=== PATIENT | male | born 1960 | race Two or more races ===

== ENCOUNTER 2024-10-22 05:46 | Inpatient (IN) | payer OTHER, MEDICAID ==
[~2024-10-22] VITALS: Ht 185.4 cm; Wt 93.8 kg
--- NOTE | 2024-10-22 06:31 | ED.PDOC ---
General HPI Comments 64 year old male brought in by EMS presents to the ED with a chief complaint of dysuria onset 1 month. Patient states he had RT knee surgery about 1 month ago, since then has been experiencing dysuria, dark color urine, incontinence. Patient had surgery on 09/25/24. Denies fever, chills, nausea, vomiting, diarrhea, abdominal pain, hematuria, shortness of breath, dizziness, blurry vision. No other symptoms or modifying factors present at this time, Chief Complaint: Urinary Time Seen by MD: 06:18 Reviewed notes: Medications, Allergies Allergies: Coded Allergies: NO KNOWN ALLERGIES (Unverified , 10/22/24) Information Source: Patient, Emergency Med Personnel Mode of Arrival: EMS Severity: Moderate Timing: Months Duration: Since onset Prehospital treatment: None Onset: Spontaneous Symptoms: Dysuria, Other (incontinence) History of: None Location: None Penile discharge: None associated signs and symptoms: Dysuria, Other (incontinence) Past Medical History PAST MEDICAL HISTORY: Denies Surgical History: Denies all surgeries Surgical History (Other): RT ankle surgery Family History Family History: Unknown Social History Smoker: Non-Smoker Alcohol: Denies ETOH Use Drugs: Denies Drug Use Lives In: Home Constitutional: denies: chills, diaphoresis, fatigue, fever, malaise, sweats, weakness, others EENTM: denies: blurred vision, double vision, ear bleeding, ear discharge, ear drainage, ear pain, ear ringing, eye pain, eye redness, hearing loss, mouth pain, mouth swelling, nasal discharge, nose bleeding, nose congestion, nose pain, photophobia, tearing, throat pain, throat swelling, voice changes, others Respiratory: denies: cough, hemoptysis, orthopnea, SOB at rest, shortness of breath, SOB with excertion, stridor, wheezing, others Cardiovascular: denies: chest pain, dizzy spells, diaphoresis, Dyspnea on exertion, edema, irregular heart beat, left arm pain, lightheadedness, palpitations, PND, syncope, others Gastrointestinal: denies: abdomen distended, abdominal pain, blood streaked bowels, constipated, diarrhea, dysphagia, difficulty swallowing, hematemesis, melena, nausea, poor appetite, poor fluid intake, rectal bleeding, rectal pain, vomiting, others Genitourinary: reports: dysuria, incontinence, others (dark urine); denies: burning, flank pain, frequency, hematuria, penile discharge, penile sore, pain, testicle pain, testicle swelling, urgency Neurological: denies: dizziness, fainting, headache, left sided numbness, left sided weakness, numbness, paresthesia, pre-existing deficit, right sided numbness, right sided weakness, seizure, speech problems, tingling, tremors, w eakness, others Musculoskeletal: denies: back pain, gout, joint pain, joint swelling, muscle pain, muscle stiffness, neck pain, others Integumetry: denies: bruises, change in color, change in hair/nails, dryness, laceration, lesions, lumps, rash, wounds, others Allergic/Immunocompromised: denies: Difficulty Healing, Frequent Infections, Hives, Itching, others Hematologic/Lymphatic: denies: anemia, blood clots, easy bleeding, easy bruising, swollen glands, others Endocrine: denies: excessive hunger, excessive sweating, excessive thirst, excessive urination, flushing, intolerance to cold, intolerance to heat, unexplained weight gain, unexplained weight loss, others Psychiatric: denies: anxiety, bipolar disorder, depression, hopeless, panic disorder, schizophrenia, sleepless, suicidal, others All Other Systems: Reviewed and Negative Physical Exam General Appearance: No Apparent Distress, Normal HEENT: Normal ENT Inspection, Pharynx Normal, TMs Normal Neck: Full Range of Motion, Non-Tender, Normal, Normal Inspection Respiratory: Chest Non-Tender, Lungs Clear, No Accessory Muscle Use, No Respiratory Distress, Normal Breath Sounds Cardiovascular: No Edema, No JVD, No Murmur, No Gallop, Normal Peripheral Pulses, Regular Rate/Rhythm Breast Exam: Deferred Gastrointestinal: No Organomegaly, Non Tender, No Pulsatile Mass, Normal Bowel Sounds, Soft Genitalia: Deferred Pelvic: Deferred Rectal: Deferred Extremities: No calf tenderness, Normal capillary refill, Normal inspection, Normal range of motion, Non-tender, No pedal edema Musculoskeletal : Apperance: Normal Neurologic: Alert, principal programmer II-XII nml as Tested, No Motor Deficits, Normal Affect, Normal Mood, No Sensory Deficits Cerebellar Function: Normal Reflexes: Normal Skin: Dry, Normal Color, Warm Lymphatic: No Adenopathy Was a procedure done? Was a procedure done?: No Differential Diagnosis Kidney stone (Female): N/A Kidney stone (Male): Pyelonephritis, Renal failure, Urinary obstruction, Urolithiasis, Renal infarction, Urinary tract infection Penile/Scrotal: Epidiymitis, Foreign Body, Prostatitis, Urolithiasis Urinary Problem (Male): Bladder Outlet, Bladder Obstruction, Prostatitis, Plelonephritis, Urinary Retention Urinary Problem (Female): N/A X-Ray, Labs, Meds, VS Vital Signs Date Time Temp Pulse Resp B/P (MAP) Pulse Ox O2 Delivery O2 Flow Rate FiO2 10/22/24 08:12 90 18 98 Room Air* 0 21 10/22/24 07:57 90 17 93 Room Air 10/22/24 07:57 97.9 90 17 136/95 (109) 93 97.9 10/22/24 05:51 98.2 90 16 132/89 (103) 95 Lab Test 10/22/24 07:47 10/22/24 06:29 Range/Units Urine Color Yellow Yellow Urine Clarity Turbid H Clear Urine pH 6.0 5.0-9.0 Urine Specific [place] 1.029 1.001-1.035 Urine Protein 3+ H Negative Urine Ketones Negative Negative Urine Blood 2+ H Negative /uL Urine Nitrite Negative Negative Urine Bilirubin Negative Negative Urine Urobilinogen Normal Negative mg/dL Urine Leukocyte Esterase Negative Negative /uL Urine RBC 40 0 - 3 /hpf Urine Microscopic WBC 9 H 0-3 /HPF Urine Squamous Epithelial Cells Few <5 /hpf Urine Bacteria Few H None Seen /hpf Urine Mucus Few None Seen Urine Yeast (Budding) Occasional None Seen /hpf Urine Glucose Trace Normal mg/dL White Blood Count 12.1 H 4.4-10.8 10^3/uL Red Blood Count 3.82 L 4.5-5.90 10^6/uL Hemoglobin 12.2 L 13.5-17.5 g/dL Hematocrit 35.3 L 41.0-53.0 % Mean Corpuscular Volume 92.5 80.0-100.0 fL Mean Corpuscular Hemoglobin 31.8 28.0-32.0 pg Mean Corpuscular Hemoglobin Concent 34.4 32.0-36.0 g/dL Red Cell Distribution Width 14.9 H 11.8-14.3 % Platelet Count 276 140-450 10^3/uL Mean Platelet Volume 9.4 6.9-10.8 fL Neutrophils (%) (Auto) 75.2 37.0-80.0 % Lymphocytes (%) (Auto) 17.0 10.0-50.0 % Monocytes (%) (Auto) 5.3 0.0-12.0 % Eosinophils (%) (Auto) 2.3 0.0-7.0 % Basophils (%) (Auto) 0.2 0.0-2.0 % Neutrophils # (Auto) 9.1 H 1.6-8.6 10 ^3/uL Lymphocytes # (Auto) 2.1 0.4-5.4 10 ^3/uL Monocytes # (Auto) 0.6 0-1.3 10 ^3/uL Eosinophils # (Auto) 0.3 0-0.8 10 ^3/uL Basophils # (Auto) 0 0-0.2 10 ^3/uL Nucleated Red Blood Cells 0.0 % Sodium Level 139 136-145 mmol/L Potassium Level 3.2 L 3.5-5.1 mmol/L Chloride Level 100 98-107 mmol/L Carbon Dioxide Level 27 20-31 mmol/L Anion Gap 12 5-15 Blood Urea Nitrogen 30 H 9-23 mg/dL Creatinine 1.56 H 0.700-1.30 mg/dL Glomerular Filtration Rate Calc 50 >90 mL/min BUN/Creatinine Ratio 19.2 10.0-20.0 Serum Glucose 152 H 74-106 mg/dL Calcium Level 10.4 8.7-10.4 mg/dL Time of 1ST Reevaluation: 06:48 Reevaluation 1ST: Unchanged Patient Education/Counseling: Diagnosis, Treatment, Prognosis Family Education/Counseling: No Family Present Additional Information The following tests were ordered, and results were reviewed by me: BMP, CBC, UA Additional Information was gathered from interviewing the following independent historians: EMS I discussed treatment and results with medical personnel and: patient Departure 1 Departure Time of Disposition: 10:56 (Patient with complicated urinary tract infection causing urinary incontinence. We will admit patient for further workup and expert consultation) Impression: Primary Impression: Complicated UTI (urinary tract infection) Additional Impressions: Urinary incontinence Qualified Codes: R32 - Unspecified urinary incontinence Suprapubic pain Generalized weakness Disposition: 09 ADMITTED INPATIENT Admit to: Med Surg Condition: Serious Critical Care Note Critical Care Time?: No Stability Stability form required: No I personally scribed for CHAYO MIRANDA MD ([email or web address]) on 10/22/24 at 06:31. Electr onically submitted by Lesley Barahona ([email or web address]). I personally scribed for CHAYO MIRANDA MD ([email or web address]) on 10/22/24 at 06:50. Electronically submitted by Lesley Barahona ([email or web address]). CHAYO MIRANDA MD Oct 22, 2024 06:31
[2024-10-22 06:57] LABS: Anion Gap 12 (5-15); Carbon Dioxide 27 mmol/L (20-31); Chloride 100 mmol/L (98-107); Sodium 139 mmol/L (136-145)
[2024-10-22 06:59] LABS: Calcium 10.4 mg/dL (8.7-10.4); Potassium 3.2 mmol/L (3.5-5.1)
[2024-10-22 07:03] LABS: BUN/Creatinine Ratio 19.2 (10.0-20.0)
[2024-10-22 07:05] LABS: Basophils # (auto) 0 10 ^3/uL (0-0.2); Basophils % (auto) 0.2 % (0.0-2.0); Eosinophils # (auto) 0.3 10 ^3/uL (0-0.8); Eosinophils % (auto) 2.3 % (0.0-7.0); Hematocrit 35.3 % (41.0-53.0); Hemoglobin 12.2 g/dL (13.5-17.5); Lymphocytes # (auto) 2.1 10 ^3/uL (0.4-5.4); Mean Corpuscular Hemoglobin 31.8 pg (28.0-32.0); Mean Corpuscular Hgb Conc. 34.4 g/dL (32.0-36.0); Mean Corpuscular Volume 92.5 fL (80.0-100.0); Monocytes # (auto) 0.6 10 ^3/uL (0-1.3); Monocytes % (auto) 5.3 % (0.0-12.0); Neutrophils # (auto) 9.1 10 ^3/uL (1.6-8.6); Neutrophils % (auto) 75.2 % (37.0-80.0); Platelet Count (auto) 276 10^3/uL (140-450); Red Blood Cells 3.82 10^6/uL (4.5-5.90); Red Cell Distribution Width 14.9 % (11.8-14.3); White Blood Cell 12.1 10^3/uL (4.4-10.8)
[2024-10-22 07:11] LABS: Blood Urea Nitrogen 30 mg/dL (9-23); Glucose 152 mg/dL (74-106)
[2024-10-22 08:12] VITALS: PULSE 90; RESP 18; O2SAT 98
[2024-10-22 08:49] LABS: Urine Bacteria FEW /hpf (None Seen); Urine Blood 2+ /uL (Negative); Urine Budding Yeast OCCASIONAL /hpf (None Seen); Urine Clarity Turbid (Clear); Urine Color Yellow (Yellow); Urine Mucus FEW (None Seen); Urine Protein, UAD 3+ (Negative); Urine Specific Gravity 1.029 (1.001-1.035); Urine Squamous Epithelial Cell FEW /hpf (<5); Urine Urobilinogen Normal (Negative); Urine WBC 9 /HPF (0-3)
--- NOTE | 2024-10-22 10:49 | DVH ---
CT ABDOMEN AND PELVIS WITHOUT CONTRAST CLINICAL HISTORY: abdominal pain, hematuria, urinary issues TECHNIQUE: Multiple contiguous axial images of the abdomen and pelvis without intravenous contrast. T he images were reformatted degenerate coronal and sagittal reconstructions. All CT scans at this medical facility are performed using dose modulation techniques as appropriate t o a performed exam including the following:Automated exposure control was utilized; adjustment of the MA and/or KV according to patient size; and use of iterative reconstruction technique. Radiation Dose Information: CT Dose: CTDI volume is 16 mGy. Dose-length product is 939 mGy*cm Comparison: None FINDINGS: Evaluation of the abdomen and pelvis is limited without intravenous contrast. CT images are also degr aded by motion artifact. There is no evidence of nephrolithiasis or hydronephrosis. There is a 2.1 cm right midpole renal cys t. The liver, gallbladder, pancreas, adrenal glands, and spleen appear within normal limits. There is no gross evidence of abdominal lymphadenopathy. There is no free fluid or free air. The stomach grossly appears unremarkable. The small and large bowel loops demonstrate normal caliber . There are scattered diverticula in the distal colon without evidence of acute diverticulitis. A no rmal appearing appendix is seen in the right lower quadrant abdomen. The abdominal aorta and IVC appear within normal limits. Poorly filled bladder demonstrates circumferential wall thickening. There mild fat stranding surroun ding the bladder. There is no evidence of a bladder calculus. The prostate gland is not appear signif icantly enlarged. There is no gross evidence of a pelvic mass. There is no free fluid collection. Lung bases are clear. There is no acute osseous abnormality. IMPRESSION: 1. Poorly filled bladder demonstrates circumferential wall thickening and surrounding fat stranding. The findings are suggestive of cystitis. Clinical and laboratory correlation is recommended. 2. There is no evidence of nephrolithiasis or hydronephrosis. 3. Distal colon diverticulosis. HS:Y
[2024-10-22] MEDS: CEFEPIME 2GM/50ML NS 50 ML IV ONE (11:10)
[2024-10-22] MEDS ORDERED: ACETAMINOPHEN 325 MG TAB PO PRN (13:30)
[2024-10-22] MEDS ORDERED: DOCUSATE SOD 100 MG CAP PO PRN (13:30)
[2024-10-22] MEDS ORDERED: ONDANSETRON HCL 4 MG/2 ML VIAL IV PRN (13:30)
--- NOTE | 2024-10-22 13:47 | DVHHP2 ---
History of Present Illness Reason for Visit: Difficulty urinating History of Present Illness César Daley is a 64-year-old male with past medical history of hypertension and seizures, who came in for difficulty urinating. Patient states he had an ankle surgery on 09/25/2024 and has been difficulty urinating since his discharge on 09/28/2024. Patient is a poor historian, he states he has seizures and can not remember things, he does not know the medications he takes, he can not tell me what medications he takes, and he lives [facility]. Cardiovascular: HTN DATA ANALYTICS ARCHITECT: Seizure Past Surgical History: Other (right ankle) Smoke: No ALCOHOL: none Drugs: None Lives: Other ([facility] Domestic Violence: Neg Review of Systems Constitutional: No: Fever, Chills, Sweats, Weakness, Malaise, Other Eyes: No: Pain, Vision change, Conjunctivae inflammation, Eyelid inflammation, Other, Redness ENT: No: Ear pain, Ear discharge, Nose pain, Nose discharge, Nose congestion, Mouth pain, Mouth swelling, Throat pain, Throat swelling, Other Respiratory: No: Cough, Dry, Shortness of breath, SOB with excertion, Wheezing, Hemoptysis, Pleuritic Pain, Sputum, Wheezing, Other Cardiovascular: No: Chest Pain, Palpitations, Orthopnea, Paroxysmal Noc. Dyspnea, Edema, Lt Headedness, Other Gastrointestinal: Abdominal Pain (pelvic pain); No: Nausea, Vomiting, Diarrhea, Constipation, Melena, Hematochezia, Other Genitourinary: Dysuria, Frequency; No Incontinence, No Hematuria, No Retention, No Other Musculoskeletal: No: other, neck pain, shoulder pain, arm pain, back pain, hand pain, leg pain, foot pain Skin: No: Rash, Lesions, Jaundice, Bruising, Other Neurological: No: Weakness, Numbness, Incoordination, Change in speech, Confusion, Seizures, Other Allergies: Coded Allergies: NO KNOWN ALLERGIES (Unverified , 10/22/24) Exam Vital Signs Vital Signs Date Time Temp Pulse Resp B/P (MAP) Pulse Ox O2 Delivery O2 Flow Rate FiO2 10/22/24 11:10 97.4 91 16 150/90 (110) 94 97.4 10/22/24 08:12 Room Air* 0 21 General Appearance: Alert, Oriented X3, Cooperative, mild distress HEENT: Atraumatic, PERRLA, EOMI Respiratory: Clear to auscultation, Normal air movement Cardiovascular: Regular rate, Normal S1, Normal S2, No murmurs Abdominal: Normal bowel sounds, Soft, Other (Pelvic pain, dysuria) Extremities: No clubbing, No cyanosis, No edema, Normal pulses Skin: No rashes, No breakdown, No significant lesion Neuro: Normal gait, Normal speech, Strength at 5/5 X4 ext, Normal tone, Other (forgetful, Poor historian) Psych/Mental Status: Mood NL Labs/Xrays Labs Test 10/22/24 07:47 10/22/24 06:29 Range/Units Urine Color Yellow Yellow Urine Clarity Turbid H Clear Urine pH 6.0 5.0-9.0 Urine Specific [place] 1.029 1.001-1.035 Urine Protein 3+ H Negative Urine Ketones Negative Negative Urine Blood 2+ H Negative /uL Urine Nitrite Negative Negative Urine Bilirubin Negative Negative Urine Urobilinogen Normal Negative mg/dL Urine Leukocyte Esterase Negative Negative /uL Urine RBC 40 0 - 3 /hpf Urine Microscopic WBC 9 H 0-3 /HPF Urine Squamous Epithelial Cells Few <5 /hpf Urine Bacteria Few H None Seen /hpf Urine Mucus Few None Seen Urine Yeast (Budding) Occasional None Seen /hpf Urine Glucose Trace Normal mg/dL White Blood Count 12.1 H 4.4-10.8 10^3/uL Red Blood Count 3.82 L 4.5-5.90 10^6/uL Hemoglobin 12.2 L 13.5-17.5 g/dL Hematocrit 35.3 L 41.0-53.0 % Mean Corpuscular Volume 92.5 80.0-100.0 fL Mean Corpuscular Hemoglobin 31.8 28.0-32.0 pg Mean Corpuscular Hemoglobin Concent 34.4 32.0-36.0 g/dL Red Cell Distribution Width 14.9 H 11.8-14.3 % Platelet Count 276 140-450 10^3/uL Mean Platelet Volume 9.4 6.9-10.8 fL Neutrophils (%) (Auto) 75.2 37.0-80.0 % Lymphocytes (%) (Auto) 17.0 10.0-50.0 % Monocytes (%) (Auto) 5.3 0.0-12.0 % Eosinophils (%) (Auto) 2.3 0.0-7.0 % Basophils (%) (Auto) 0.2 0.0-2.0 % Neutrophils # (Auto) 9.1 H 1.6-8.6 10 ^3/uL Lymphocytes # (Auto) 2.1 0.4-5.4 10 ^3/uL Monocytes # (Auto) 0.6 0-1.3 10 ^3/uL Eosinophils # (Auto) 0.3 0-0.8 10 ^3/uL Basophils # (Auto) 0 0-0.2 10 ^3/uL Nucleated Red Blood Cells 0.0 % Sodium Level 139 136-145 mmol/L Potassium Level 3.2 L 3.5-5.1 mmol/L Chloride Level 100 98-107 mmol/L Carbon Dioxide Level 27 20-31 mmol/L Anion Gap 12 5-15 Blood Urea Nitrogen 30 H 9-23 mg/dL Creatinine 1.56 H 0.700-1.30 mg/dL Glomerular Filtration Rate Calc 50 >90 mL/min BUN/Creatinine Ratio 19.2 10.0-20.0 Serum Glucose 152 H 74-106 mg/dL Calcium Level 10.4 8.7-10.4 mg/dL CT ABDOMEN AND PELVIS WITHOUT CONTRAST FINDINGS: Evaluation of the abdomen and pelvis is limited without intravenous contrast. CT images are also degraded by motion artifact. There is no evidence of nephrolithiasis or hydronephrosis. There is a 2.1 cm right midpole renal cyst. The liver, gallbladder, pancreas, adrenal glands, and spleen appear within normal limits. There is no gross evidence of abdominal lymphadenopathy. There is no free fluid or free air. The stomach grossly appears unremarkable. The small and large bowel loops demonstrate normal caliber. There are scattered diverticula in the distal colon without evidence of acute diverticulitis. A normal appearing appendix is seen in the right lower quadrant abdomen. The abdominal aorta and IVC appear within normal limits. Poorly filled bladder demonstrates circumferential wall thickening. There mild fat stranding surrounding the bladder. There is no evidence of a bladder calculus. The prostate gland is not appear significantly enlarged. There is no gross evidence of a pelvic mass. There is no free fluid collection. Lung bases are clear. There is no acute osseous abnormality. IMPRESSION: 1. Poorly filled bladder demonstrates circumferential wall thickening and surrounding fat stranding. The findings are suggestive of cystitis. Clinical and laboratory correlation is recommended. 2. There is no evidence of nephrolithiasis or hydronephrosis. 3. Distal colon diverticulosis. Assessment/Plan Assessment/Plan Assessment: Complicated UTI, Cystitis, Seizures, Hypertension, Plan: Admit to Med-Surg, IV antibiotics, IV hydration, Urine culture, Patient is going to provide a list of home medications to be reconciled, Antihypertensives started, Will start Keppra, seizure medication until patient is able to provide a proper list. Plan discussed with: Patient My Orders Orders - KATY LARA Procedure Category Date Status Time Admit ADMIT 10/22/24 Verified 13:21 Code Status CODE 10/22/24 Verified 13:21 0.9% Ns 1000 Ml PHA 10/22/24 Verified 13:30 Hydrocodone-Acet PHA 10/22/24 Verified 5/325mg Tab (Rozel 13:30 Ondansetron Hcl PHA 10/22/24 Verified (Zofran) 13:30 Docusate Sodium PHA 10/22/24 Verified Capsule (Colace 13:30 Complete Blood Count LAB 10/23/24 Verified 04:00 Comprehensive LAB 10/23/24 Verified Metabolic Panel 04:00 Condition: Serious LUIS ALBERTO 10/22/24 Verified 13:21 Acetaminophen Tablet PHA 10/22/24 Verified (Tylenol Tablet) 13:30 Urine Bacterial ISAAC 10/22/24 Verified Culture 13:21 NS PHA 10/22/24 Verified 13:30 Ceftriaxone Ivpb PHA 10/23/24 Verified Rocephin 09:00 Seizure Precautions ED NURSING 10/22/24 Verified Date of Service: Oct 22, 2024 Billing Provider: KATY LARA Common Visit Codes: [id number] INP/OBS CARE (MOD) KATY LARA Oct 22, 2024 13:47
[2024-10-22 21:11] VITALS: BP 115/75; PULSE 100; RESP 20; TEMP 97.9; O2SAT 91
[2024-10-22 22:42] VITALS: PULSE 100; RESP 20; O2SAT 91
[2024-10-22] MEDS: levETIRAcetam 500 MG TAB PO SCH (22:48)
[2024-10-22] MEDS: amLODIPine BESYLATE 5 MG TAB PO ONE (22:48)
[2024-10-22] MEDS: SODIUM CHLORIDE 0.9% 1,000 ML IV SCH (23:00)
[2024-10-23] VITALS (7 sets, daily range): BP systolic 114–142; BP diastolic 73–92; PULSE 76–105; RESP 18–20; TEMP 97.6–99.5; O2SAT 91–95
[2024-10-23 06:33] LABS: Basophils # (auto) 0 10 ^3/uL (0-0.2); Basophils % (auto) 0.3 % (0.0-2.0); Eosinophils # (auto) 0.3 10 ^3/uL (0-0.8); Eosinophils % (auto) 2.8 % (0.0-7.0); Hematocrit 34.7 % (41.0-53.0); Hemoglobin 11.8 g/dL (13.5-17.5); Lymphocytes # (auto) 2.1 10 ^3/uL (0.4-5.4); Lymphocytes % (auto) 20.7 % (10.0-50.0); Mean Corpuscular Hemoglobin 31.4 pg (28.0-32.0); Mean Corpuscular Volume 92.3 fL (80.0-100.0); Monocytes # (auto) 0.7 10 ^3/uL (0-1.3); Monocytes % (auto) 6.9 % (0.0-12.0); Neutrophils # (auto) 7.1 10 ^3/uL (1.6-8.6); Neutrophils % (auto) 69.3 % (37.0-80.0); Platelet Count (auto) 287 10^3/uL (140-450); Red Blood Cells 3.75 10^6/uL (4.5-5.90); Red Cell Distribution Width 14.7 % (11.8-14.3); White Blood Cell 10.3 10^3/uL (4.4-10.8)
[2024-10-23 06:50] LABS: Alanine Aminotransferase 26 U/L (7-40); Albumin 3.9 g/dL (3.2-4.8); Alkaline Phosphatase 65 U/L (46-116); Anion Gap 10 (5-15); Aspartate Aminotransferase 26 U/L (13-40); BUN/Creatinine Ratio 21.9 (10.0-20.0); Carbon Dioxide 28 mmol/L (20-31); Chloride 101 mmol/L (98-107); Sodium 139 mmol/L (136-145)
[2024-10-23 06:51] LABS: Bilirubin, Total 0.3 mg/dL (0.2-1.0)
[2024-10-23 06:53] LABS: Blood Urea Nitrogen 37 mg/dL (9-23); Glucose 148 mg/dL (74-106); Potassium 3.4 mmol/L (3.5-5.1)
[2024-10-23] MEDS: cefTRIAXone 1GM/50ML D5W 50 ML IV SCH (09:12)
[2024-10-23] MEDS: amLODIPine BESYLATE 5 MG TAB PO SCH (09:13)
[2024-10-23] MEDS: SODIUM CHLORIDE 0.9% 1,000 ML IV ONE (12:58)
--- NOTE | 2024-10-23 13:08 | DVHPN2 ---
Reviewed: Care Plan, H&P, Labs, Medications, Previous Orders, Radiology Changes from previous H/P or p: No Changes Eyes: No Pain, No Vision change, No Conjunctivae inflammation, No Eyelid inflammation, No Other, No Redness ENT: No Ear pain, No Ear discharge, No Nose pain, No Nose discharge, No Nose congestion, No Mouth pain, No Mouth swelling, No Throat pain, No Throat swelling, No Other Cardiovascular: No Chest Pain, No Palpitations, No Orthopnea, No Paroxysmal Noc. Dyspnea, No Edema, No Lt Headedness, No Other Respiratory: No Cough, No Dry, No Shortness of breath, No SOB with excertion, No Wheezing, No Hemoptysis, No Pleuritic Pain, No Sputum, No Other Gastrointestinal: No Nausea, No Vomiting; Abdominal Pain (pelvic pain); No Diarrhea, No Constipation, No Melena, No Hematochezia, No Other Genitourinary: Dysuria, Frequency; No Incontinence, No Hematuria, No Retention, No Other Musculoskeletal: No other, No neck pain, No shoulder pain, No arm pain, No back pain, No hand pain, No leg pain, No foot pain Skin: No Rash, No Lesions, No Jaundice, No Bruising, No Other Objective Vitals Vital Signs Date Time Temp Pulse Resp B/P (MAP) Pulse Ox O2 Delivery O2 Flow Rate FiO2 10/23/24 12:41 98.3 76 18 139/88 (105) 95 98.3 10/23/24 08:00 Room Air* 0 21 Intake/Output Intake and Output 10/23/24 07:00 Intake Total 1010 ml Balance 1010 ml Intake Oral 400 ml IV Total 610 ml # Voids 3 Medications Current Medications Medications Dose Ordered Sig/Aren Route Start Time Stop Time Status Last Admin Dose Admin Sodium Chloride 1,000 ml @ 75 mls/hr [id number] IV 10/22/24 13:30 10/22/24 23:00 75 MLS/HR Acetaminophen/ Hydrocodone Bitart 1 tab Q4HP PRN PO 10/22/24 13:30 Ondansetron HCl 4 mg Q4HP PRN IV 10/22/24 13:30 Docusate Sodium 100 mg BIDPRN PRN PO 10/22/24 13:30 Acetaminophen 650 mg Q6HP PRN PO 10/22/24 13:30 Ceftriaxone Sodium 50 ml @ 100 mls/hr DAILY@09 IV 10/23/24 09:00 10/23/24 09:12 100 MLS/HR Levetiracetam 500 mg BID PO 10/22/24 22:00 10/23/24 09:12 500 MG Amlodipine Besylate 10 mg DAILY PO 10/23/24 10:00 10/23/24 09:13 10 MG Laboratory Results Laboratory Tests 10/23/24 05:59 Chemistry Test 10/23/24 05:59 Albumin 3.9 g/dL (3.2-4.8) Calcium Level 10.0 mg/dL (8.7-10.4) Total Protein 7.0 g/dL (5.7-8.2) LFT Test 10/23/24 05:59 Alanine Aminotransferase (ALT) 26 U/L (7-40) Alkaline Phosphatase 65 U/L (46-116) Aspartate Amino Transferase (AST) 26 U/L (13-40) Total Bilirubin 0.3 mg/dL (0.2-1.0) Urinalysis Test 10/22/24 07:47 Urine Color Yellow (Yellow) Urine Clarity Turbid (Clear) H Urine pH 6.0 (5.0-9.0) Urine Specific [place] 1.029 (1.001-1.035) Urine Protein 3+ (Negative) H Urine Ketones Negative (Negative) Urine Blood 2+ /uL (Negative) H Urine Nitrite Negative (Negative) Urine Bilirubin Negative (Negative) Urine Urobilinogen Normal mg/dL (Negative) Urine Leukocyte Esterase Negative /uL (Negative) Urine RBC 40 /hpf (0 - 3) Urine Microscopic WBC 9 /HPF (0-3) H Urine Squamous Epithelial Cells Few /hpf (<5) Urine Bacteria Few /hpf (None Seen) H Urine Mucus Few (None Seen) Urine Yeast (Budding) Occasional /hpf (None Urine Glucose Trace mg/dL (Normal) Microbiology Microbiology Date/Time Source Procedure Growth Status 10/22/24 07:47 Voided Urine Urine Culture - Preliminary Resulted Labs and/or images reviewed: Labs reviewed by me, Image(s) reviewed by me Assessment/Plan Assessment/Plan Sepsis secondary to urinary tract infection: Urine cultures Rocephin Seizures: Keppra Hypertension: Amlodipine Acute urinary retention: CT abdomen pelvis without contrast negative, we will order PSA History of right ankle fracture surgery at [place] 09/25/2024, per wound care nurse lot of smell, we will order MRI right foot and podiatric consult for Dr. Marshall Plan discussed with: Patient My Orders Orders - CASSIE MCKEON MD Procedure Category Date Status Time Psa Total+% Free LAB 10/23/24 Transmitted 13:03 Date of Service: Oct 23, 2024 Billing Provider: CASSIE MCKEON MD Common Visit Codes: [id number] INP/OBS CARE(HIGH) CASSIE MCKEON MD Oct 23, 2024 13:08
[2024-10-24] VITALS (7 sets, daily range): BP systolic 148–158; BP diastolic 74–97; PULSE 77–92; RESP 18–20; TEMP 97.8–98.5; O2SAT 94–96
--- NOTE | 2024-10-24 08:53 | DVHPN2 ---
Reviewed: Care Plan, H&P, Labs, Medications, Previous Orders, Radiology Changes from previous H/P or p: No Changes Eyes: No Pain, No Vision change, No Conjunctivae inflammation, No Eyelid inflammation, No Other, No Redness ENT: No Ear pain, No Ear discharge, No Nose pain, No Nose discharge, No Nose congestion, No Mouth pain, No Mouth swelling, No Throat pain, No Throat swelling, No Other Cardiovascular: No Chest Pain, No Palpitations, No Orthopnea, No Paroxysmal Noc. Dyspnea, No Edema, No Lt Headedness, No Other Respiratory: No Cough, No Dry, No Shortness of breath, No SOB with excertion, No Wheezing, No Hemoptysis, No Pleuritic Pain, No Sputum, No Other Gastrointestinal: No Nausea, No Vomiting; Abdominal Pain (pelvic pain); No Diarrhea, No Constipation, No Melena, No Hematochezia, No Other Genitourinary: Dysuria, Frequency; No Incontinence, No Hematuria, No Retention, No Other Musculoskeletal: No other, No neck pain, No shoulder pain, No arm pain, No back pain, No hand pain, No leg pain, No foot pain Skin: No Rash, No Lesions, No Jaundice, No Bruising, No Other Objective Vitals Vital Signs Date Time Temp Pulse Resp B/P (MAP) Pulse Ox O2 Delivery O2 Flow Rate FiO2 10/24/24 08:17 152/90 10/24/24 08:04 Room Air* 0 21 10/24/24 05:00 98.1 79 20 96 98.1 Intake/Output Intake and Output 10/24/24 07:00 Intake Total 900 ml Output Total 400 ml Balance 500 ml Intake Oral 850 ml IV Total 50 ml Output Urine Total 400 ml # Voids 5 Medications Current Medications Medications Dose Ordered Sig/Aren Route Start Time Stop Time Status Last Admin Dose Admin Sodium Chloride 1,000 ml @ 75 mls/hr [id number] IV 10/22/24 13:30 10/24/24 05:30 75 MLS/HR Acetaminophen/ Hydrocodone Bitart 1 tab Q4HP PRN PO 10/22/24 13:30 Ondansetron HCl 4 mg Q4HP PRN IV 10/22/24 13:30 Docusate Sodium 100 mg BIDPRN PRN PO 10/22/24 13:30 Acetaminophen 650 mg Q6HP PRN PO 10/22/24 13:30 Ceftriaxone Sodium 50 ml @ 100 mls/hr DAILY@09 IV 10/23/24 09:00 10/24/24 08:01 100 MLS/HR Levetiracetam 500 mg BID PO 10/22/24 22:00 10/24/24 08:18 500 MG Amlodipine Besylate 10 mg DAILY PO 10/23/24 10:00 10/24/24 08:17 10 MG Laboratory Results Laboratory Tests 10/23/24 05:59 Urinalysis Test 10/22/24 07:47 Urine Color Yellow (Yellow) Urine Clarity Turbid (Clear) H Urine pH 6.0 (5.0-9.0) Urine Specific [place] 1.029 (1.001-1.035) Urine Protein 3+ (Negative) H Urine Ketones Negative (Negative) Urine Blood 2+ /uL (Negative) H Urine Nitrite Negative (Negative) Urine Bilirubin Negative (Negative) Urine Urobilinogen Normal mg/dL (Negative) Urine Leukocyte Esterase Negative /uL (Negative) Urine RBC 40 /hpf (0 - 3) Urine Microscopic WBC 9 /HPF (0-3) H Urine Squamous Epithelial Cells Few /hpf (<5) Urine Bacteria Few /hpf (None Seen) H Urine Mucus Few (None Seen) Urine Yeast (Budding) Occasional /hpf (None Urine Glucose Trace mg/dL (Normal) Microbiology Microbiology Date/Time Source Procedure Growth Status 10/22/24 07:47 Voided Urine Urine Culture - Preliminary Resulted Labs and/or images reviewed: Labs reviewed by me, Image(s) reviewed by me Assessment/Plan Assessment/Plan Sepsis secondary to urinary tract infection: Urine cultures pending, continue Rocephin Seizures: Keppra Hypertension: Amlodipine Acute urinary retention: CT abdomen pelvis without contrast negative, PSA pending History of right ankle fracture surgery at [place] 09/25/2024, patient did not go back for postop check, possible infection per wound care nurse , MRI ankle could not be done as there is too much metal in the ankle per explosive ordnance disposal technician Rm, consult for ship's pilot Dr. Lara Plan discussed with: Patient My Orders Orders - CASSIE MCKEON MD Procedure Category Date Status Time Psa Total+% Free LAB 10/23/24 In Process 13:03 *Podiatry Consult CONS 10/23/24 Transmitted Joanna([facility]) 13:08 * Dietary Consult CONS 10/23/24 Transmitted 12:27 Cleanse Wound With LUIS ALBERTO 10/23/24 In Process Wound Clean 12:27 Date of Service: Oct 24, 2024 Billing Provider: CASSIE MCKEON MD Common Visit Codes: [id number] INP/OBS CARE(HIGH) CASSIE MCKEON MD Oct 24, 2024 08:53
[2024-10-24] MEDS: POTASSIUM CHL 20 Meq TABLET PO ONE (10:36)
[2024-10-24 11:08] LABS: PSA Free 0.1 ng/mL
--- NOTE | 2024-10-24 12:58 | DVHINCON2 ---
Date Seen: Oct 24, 2024 Reason for Consultation Right ankle wound History of Present Illness César Daley is a 64-year-old male with past medical history of hypertension and seizures, who came in for difficulty urinating. Patient states he had an ankle surgery on 09/25/2024 and has been difficulty urinating since his discharge on 09/28/2024. Patient is a poor historian, he states he has seizures and can not remember things, he does not know the medications he takes, he can not tell me what medications he takes, and he lives in a [facility]. Past Medical History See H&P Past Surgical History See H&P Family History: Patient reports no known family medical history. Allergies: Coded Allergies: NO KNOWN ALLERGIES (Unverified , 10/22/24) Home Meds Unable to Obtain Active Prescriptions or Reported Meds Vital Signs Vital Signs Date Time Temp Pulse Resp B/P (MAP) Pulse Ox O2 Delivery O2 Flow Rate FiO2 10/24/24 08:53 98.2 77 18 152/92 (112) 94 98.2 10/24/24 08:04 Room Air* 0 21 Physical Exam DERMATOLOGIC EXAM: - Skin is dry and cool to the touch dry bilaterally. - Nails 1-5 of the bilateral foot are thickened, discolored, dystrophic, and tender to palpate with subungual debris - Hair loss noted to bilateral feet Wound #1: Location: Right lateral fibula Measurements: Length 1.5 cm x width 1.5 cm x depth 0.5 cm. Wound margins: Hyperkeratotic. Wound base: Full thickness. General Appearance: Healthy and bleeding. Probes to Bone: No Purulent drainage: No Serous drainage: No Erythema: Absent VASCULAR EXAM: - DP and PT pulses are palpable bilaterally. - BALER is brisk to all digits. - Feet are cool to touch compared to lower legs bilaterally. NEUROLOGIC EXAM: - Normal light touch sensation to the superficial peroneal, deep peroneal, sural, saphenous, and tibial nerve branches. - Protective sensation is diminished as tested with a 5.07 10g [place]-Rakesh bilaterally. MUSCULOSKELETAL EXAM: - No gross deformities - Muscle strength is 5/5 and active motion is pain-free and symmetrical bilaterally - No pain or crepitation with passive range of motion bilaterally to all major pedal joints Labs/Diagnostic Data Labs Test 10/23/24 05:59 10/22/24 07:47 Range/Units White Blood Count 10.3 4.4-10.8 10^3/uL Red Blood Count 3.75 L 4.5-5.90 10^6/uL Hemoglobin 11.8 L 13.5-17.5 g/dL Hematocrit 34.7 L 41.0-53.0 % Mean Corpuscular Volume 92.3 80.0-100.0 fL Mean Corpuscular Hemoglobin 31.4 28.0-32.0 pg Mean Corpuscular Hemoglobin Concent 34.0 32.0-36.0 g/dL Red Cell Distribution Width 14.7 H 11.8-14.3 % Platelet Count 287 140-450 10^3/uL Mean Platelet Volume 9.3 6.9-10.8 fL Neutrophils (%) (Auto) 69.3 37.0-80.0 % Lymphocytes (%) (Auto) 20.7 10.0-50.0 % Monocytes (%) (Auto) 6.9 0.0-12.0 % Eosinophils (%) (Auto) 2.8 0.0-7.0 % Basophils (%) (Auto) 0.3 0.0-2.0 % Neutrophils # (Auto) 7.1 1.6-8.6 10 ^3/uL Lymphocytes # (Auto) 2.1 0.4-5.4 10 ^3/uL Monocytes # (Auto) 0.7 0-1.3 10 ^3/uL Eosinophils # (Auto) 0.3 0-0.8 10 ^3/uL Basophils # (Auto) 0 0-0.2 10 ^3/uL Nucleated Red Blood Cells 0.0 % Sodium Level 139 136-145 mmol/L Potassium Level 3.4 L 3.5-5.1 mmol/L Chloride Level 101 98-107 mmol/L Carbon Dioxide Level 28 20-31 mmol/L Anion Gap 10 5-15 Blood Urea Nitrogen 37 H 9-23 mg/dL Creatinine 1.69 H 0.700-1.30 mg/dL Glomerular Filtration Rate Calc 45 >90 mL/min BUN/Creatinine Ratio 21.9 H 10.0-20.0 Serum Glucose 148 H 74-106 mg/dL Calcium Level 10.0 8.7-10.4 mg/dL Total Bilirubin 0.3 0.2-1.0 mg/dL Aspartate Amino Transferase (AST) 26 13-40 U/L Alanine Aminotransferase (ALT) 26 7-40 U/L Alkaline Phosphatase 65 46-116 U/L Total Protein 7.0 5.7-8.2 g/dL Albumin 3.9 3.2-4.8 g/dL Free Prostate Specific Antigen 0.10 N/A ng/mL Percent Free Prostate Specific Ag 3.3 . % Prostate Specific Antigen Total 3.0 0.0-4.0 ng/mL Urine Color Yellow Yellow Urine Clarity Turbid H Clear Urine pH 6.0 5.0-9.0 Urine Specific [place] 1.029 1.001-1.035 Urine Protein 3+ H Negative Urine Ketones Negative Negative Urine Blood 2+ H Negative /uL Urine Nitrite Negative Negative Urine Bilirubin Negative Negative Urine Urobilinogen Normal Negative mg/dL Urine Leukocyte Esterase Negative Negative /uL Urine RBC 40 0 - 3 /hpf Urine Microscopic WBC 9 H 0-3 /HPF Urine Squamous Epithelial Cells Few <5 /hpf Urine Bacteria Few H None Seen /hpf Urine Mucus Few None Seen Urine Yeast (Budding) Occasional None Seen /hpf Urine Glucose Trace Normal mg/dL Microbiology Date/Time Source Procedure Growth Status 10/22/24 07:47 Voided Urine Urine Culture - Preliminary Resulted Problems(with codes): (1) Urinary incontinence (2) Generalized weakness (3) Suprapubic pain (4) Complicated UTI (urinary tract infection) Plan/Recommendation ASSESSMENT: Patient is a 64-year-old male seen on the floor for right lateral ankle wound PLAN: - The patients chart was reviewed, clinical findings were discussed with the patient, the etiologies of the conditions were discussed in detail, and a treatment plan was agreed to at this time, with both oral and written instructions provided. - recommend that we get a CT of the right ankle to rule out any osteomyelitis or examined for hardware placement - keep dressings clean dry and intact - can dress with Betadine gauze - if hardware is exposed or concern for osteo we will take him to the OR tomorrow - we will review CT All questions were answered and concerns addressed to the patient's satisfaction. The patient was given the phone number to the clinic and was told how to make contact with the clinic should any concerns or questions arise. Patient understands that if any questions or concerns arise prior to the next appointment, we should be contacted immediately. FOLLOW-UP: Continue to follow while inpatient Plan discussed with: Patient Date of Service: Oct 24, 2024 Billing Provider: CHERYL LEWIS DPM Common Visit Codes: CONSULT ONLY Consultation Codes: [id number] CONSULT <80MIN CHERYL LEWIS DPM Oct 24, 2024 12:58
--- NOTE | 2024-10-24 15:15 | DVH ---
EXAM: CT CT R ANKLE WO CONTRAST INDICATION: Evaluate hardware and possible osteomyelitis EXAM DATE: 10/24/2024 02:20 PM COMPARISON: None TECHNIQUE: Multiple axial CT images of the right ankle were obtained using bone algorithm. Axial and coronal reformatting was done. Bone and soft tissue windows were reviewed. Radiation Dose Information: CT Dose: CTDI volume is 25.05 mGy. Dose-length product is 978.11 mGy*cm Findings/Impression: There is no evidence of an acute fracture, dislocation, osseous erosions, blastic, or lytic lesions. Talocalcaneal and tarsal calcaneal fusion. 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 Mild diffuse soft tissue edema. Subcutaneous emphysema along the lateral ankle. Limited evaluation given noncontrast technique and orthopedic hardware artifact. Recommend contrast-e nhanced MRI or a nuclear medicine WBC scan for better evaluation of osteomyelitis.
[2024-10-24] MEDS: ERTAPENEM SOD INJ 1 GM in SODIUM CHL 0.9% 50 ML IV ONE (16:50)
--- NOTE | 2024-10-24 18:10 | MEDREC ---
[facility] Intervention Section I [facility] Intervention: Duplication of therapy (PLEASE CONSIDER DISCONTINUING CEFTRIAXONE SINCE PATIENT IS TAKING ERTAPENEM FOR TREATMENT OF E.COLI-ESBL AND PROTEUS MIRABILIS) [facility] Oct 24, 2024 18:10
[2024-10-24] MEDS: HYDROcodone-ACET 5/325MG TAB PO PRN (21:43)
[2024-10-25] VITALS (7 sets, daily range): BP systolic 138–166; BP diastolic 87–103; PULSE 79–102; RESP 12–20; TEMP 97.4–99; O2SAT 93–97
[2024-10-25 05:44] LABS: INR 1.11 (0.9-1.15); Prothrombin Time 11.6 sec (9.3-11.8)
--- NOTE | 2024-10-25 08:35 | DVHPN2 ---
Reviewed: Care Plan, H&P, Labs, Medications, Previous Orders, Radiology Changes from previous H/P or p: No Changes Eyes: No Pain, No Vision change, No Conjunctivae inflammation, No Eyelid inflammation, No Other, No Redness ENT: No Ear pain, No Ear discharge, No Nose pain, No Nose discharge, No Nose congestion, No Mouth pain, No Mouth swelling, No Throat pain, No Throat swelling, No Other Cardiovascular: No Chest Pain, No Palpitations, No Orthopnea, No Paroxysmal Noc. Dyspnea, No Edema, No Lt Headedness, No Other Respiratory: No Cough, No Dry, No Shortness of breath, No SOB with excertion, No Wheezing, No Hemoptysis, No Pleuritic Pain, No Sputum, No Other Gastrointestinal: No Nausea, No Vomiting; Abdominal Pain (pelvic pain); No Diarrhea, No Constipation, No Melena, No Hematochezia, No Other Genitourinary: Dysuria, Frequency; No Incontinence, No Hematuria, No Retention, No Other Musculoskeletal: No other, No neck pain, No shoulder pain, No arm pain, No back pain, No hand pain, No leg pain, No foot pain Skin: No Rash, No Lesions, No Jaundice, No Bruising, No Other Objective Vitals Vital Signs Date Time Temp Pulse Resp B/P (MAP) Pulse Ox O2 Delivery O2 Flow Rate FiO2 10/25/24 08:00 Room Air* 0 21 10/25/24 05:22 97.7 79 18 155/87 (109) 94 97.7 Intake/Output Intake and Output 10/25/24 07:00 Intake Total 1137.5 ml Output Total 1100 ml Balance 37.5 ml Intake Oral 850 ml IV Total 287.5 ml Output Urine Total 1100 ml # Voids 4 # Bowel Movements 3 Medications Current Medications Medications Dose Ordered Sig/Aren Route Start Time Stop Time Status Last Admin Dose Admin Sodium Chloride 1,000 ml @ 75 mls/hr [id number] IV 10/22/24 13:30 10/24/24 05:30 75 MLS/HR Acetaminophen/ Hydrocodone Bitart 1 tab Q4HP PRN PO 10/22/24 13:30 10/24/24 21:43 1 TAB Ondansetron HCl 4 mg Q4HP PRN IV 10/22/24 13:30 Docusate Sodium 100 mg BIDPRN PRN PO 10/22/24 13:30 Acetaminophen 650 mg Q6HP PRN PO 10/22/24 13:30 Levetiracetam 500 mg BID PO 10/22/24 22:00 10/24/24 21:43 500 MG Amlodipine Besylate 10 mg DAILY PO 10/23/24 10:00 10/24/24 08:17 10 MG Ertapenem 1 gm/ Sodium Chloride 50 ml @ 50 mls/hr DAILY@09 IV 10/25/24 09:00 Laboratory Results Laboratory Tests 10/23/24 05:59 Coagulation Test 10/25/24 04:57 Prothrombin Time 11.6 sec (9.3-11.8) Prothrombin Time INR 1.11 (0.9-1.15) Urinalysis Test 10/22/24 07:47 Urine Color Yellow (Yellow) Urine Clarity Turbid (Clear) H Urine pH 6.0 (5.0-9.0) Urine Specific [place] 1.029 (1.001-1.035) Urine Protein 3+ (Negative) H Urine Ketones Negative (Negative) Urine Blood 2+ /uL (Negative) H Urine Nitrite Negative (Negative) Urine Bilirubin Negative (Negative) Urine Urobilinogen Normal mg/dL (Negative) Urine Leukocyte Esterase Negative /uL (Negative) Urine RBC 40 /hpf (0 - 3) Urine Microscopic WBC 9 /HPF (0-3) H Urine Squamous Epithelial Cells Few /hpf (<5) Urine Bacteria Few /hpf (None Seen) H Urine Mucus Few (None Seen) Urine Yeast (Budding) Occasional /hpf (None Urine Glucose Trace mg/dL (Normal) Microbiology Microbiology Date/Time Source Procedure Growth Status 10/22/24 07:47 Voided Urine Urine Culture - Final Escherichia coli - ESBL Proteus mirabilis Complete Labs and/or images reviewed: Labs reviewed by me, Image(s) reviewed by me Assessment/Plan Assessment/Plan Sepsis secondary to urinary tract infection: Urine cultures growing ESBL E coli, DC Rocephin start Invanz 1 g IV daily for three weeks Seizures: Keppra Hypertension: Amlodipine Acute urinary retention: CT abdomen pelvis without contrast negative, PSA normal, Hernandez History of right ankle fracture surgery at [place] 09/25/2024, patient did not go back for postop check, possible infection per wound care nurse , MRI ankle could not be done as there is too much metal in the ankle per quality analyst/technical writer Rm, consult for machine fur cleaner Dr. Lara appreciated, CT right ankle negative for any osteomyelitis, we will await further plan by the machine fur cleaner Plan discussed with: Patient My Orders Orders - CASSIE MCKEON MD Procedure Category Date Status Time Ertapenem Sod Inj PHA 10/25/24 In Process (Invanz) 09:00 Date of Service: Oct 25, 2024 Billing Provider: CASSIE MCKEON MD Common Visit Codes: [id number] INP/OBS CARE(HIGH) CASSIE MCKEON MD Oct 25, 2024 08:35
[2024-10-25] MEDS: ERTAPENEM SOD INJ 1 GM in SODIUM CHL 0.9% 50 ML IV SCH (08:52)
--- NOTE | 2024-10-25 09:01 | DVH ---
INDICATION: PRE OP/pain TECHNIQUE: Frontal view of the chest. COMPARISON: None FINDINGS: . The heart and mediastinal contours are grossly unremarkable. There is no evidence of pleural disea se. The lungs are clear. The bony structures of the chest are intact without fracture. IMPRESSION: 1. No evidence of acute disease.
--- NOTE | 2024-10-25 12:57 | DVHPN2 ---
[place] César Daley is a 64-year-old male with past medical history of hypertension and seizures, who came in for difficulty urinating. Patient states he had an ankle surgery on 09/25/2024 and has been difficulty urinating since his discharge on 09/28/2024. Patient is a poor historian, he states he has seizures and can not remember things, he does not know the medications he takes, he can not tell me what medications he takes, and he lives in a [facility] [facility] care facility. Reviewed: Care Plan, H&P, Labs, Medications, Previous Orders, Radiology Changes from previous H/P or p: No Changes Eyes: No Pain, No Vision change, No Conjunctivae inflammation, No Eyelid inflammation, No Other, No Redness ENT: No Ear pain, No Ear discharge, No Nose pain, No Nose discharge, No Nose congestion, No Mouth pain, No Mouth swelling, No Throat pain, No Throat swelling, No Other Cardiovascular: No Chest Pain, No Palpitations, No Orthopnea, No Paroxysmal Noc. Dyspnea, No Edema, No Lt Headedness, No Other Respiratory: No Cough, No Dry, No Shortness of breath, No SOB with excertion, No Wheezing, No Hemoptysis, No Pleuritic Pain, No Sputum, No Other Gastrointestinal: No Nausea, No Vomiting; Abdominal Pain (pelvic pain); No Diarrhea, No Constipation, No Melena, No Hematochezia, No Other Genitourinary: Dysuria, Frequency; No Incontinence, No Hematuria, No Retention, No Other Musculoskeletal: No other, No neck pain, No shoulder pain, No arm pain, No back pain, No hand pain, No leg pain, No foot pain Skin: No Rash, No Lesions, No Jaundice, No Bruising, No Other Objective Vitals Vital Signs Date Time Temp Pulse Resp B/P (MAP) Pulse Ox O2 Delivery O2 Flow Rate FiO2 10/25/24 09:37 158/98 10/25/24 09:02 97.9 80 17 95 97.9 10/25/24 08:00 Room Air* 0 21 Intake/Output Intake and Output 10/25/24 07:00 Intake Total 1137.5 ml Output Total 1100 ml Balance 37.5 ml Intake Oral 850 ml IV Total 287.5 ml Output Urine Total 1100 ml # Voids 4 # Bowel Movements 3 Exam DERMATOLOGIC EXAM: - Skin is dry and cool to the touch dry bilaterally. - Nails 1-5 of the bilateral foot are thickened, discolored, dystrophic, and tender to palpate with subungual debris - Hair loss noted to bilateral feet Wound #1: Location: Right lateral fibula Measurements: Length 1.5 cm x width 1.5 cm x depth 0.5 cm. Wound margins: Hyperkeratotic. Wound base: Full thickness. General Appearance: Healthy and bleeding. Probes to Bone: No Purulent drainage: No Serous drainage: No Erythema: Absent VASCULAR EXAM: - DP and PT pulses are palpable bilaterally. - CW OPERATOR is brisk to all digits. - Feet are cool to touch compared to lower legs bilaterally. NEUROLOGIC EXAM: - Normal light touch sensation to the superficial peroneal, deep peroneal, sural, saphenous, and tibial nerve branches. - Protective sensation is diminished as tested with a 5.07 10g [place]-Rakesh bilaterally. MUSCULOSKELETAL EXAM: - No gross deformities - Muscle strength is 5/5 and active motion is pain-free and symmetrical bilaterally - No pain or crepitation with passive range of motion bilaterally to all major pedal joints Medications Current Medications Medications Dose Ordered Sig/Aren Route Start Time Stop Time Status Last Admin Dose Admin Sodium Chloride 1,000 ml @ 75 mls/hr [id number] IV 10/22/24 13:30 10/25/24 08:54 75 MLS/HR Acetaminophen/ Hydrocodone Bitart 1 tab Q4HP PRN PO 10/22/24 13:30 10/24/24 21:43 1 TAB Ondansetron HCl 4 mg Q4HP PRN IV 10/22/24 13:30 Docusate Sodium 100 mg BIDPRN PRN PO 10/22/24 13:30 Acetaminophen 650 mg Q6HP PRN PO 10/22/24 13:30 Levetiracetam 500 mg BID PO 10/22/24 22:00 10/25/24 09:37 500 MG Amlodipine Besylate 10 mg DAILY PO 10/23/24 10:00 10/25/24 09:37 10 MG Ertapenem 1 gm/ Sodium Chloride 50 ml @ 50 mls/hr DAILY@09 IV 10/25/24 09:00 10/25/24 08:52 50 MLS/HR Laboratory Results Laboratory Tests 10/23/24 05:59 Coagulation Test 10/25/24 04:57 Prothrombin Time 11.6 sec (9.3-11.8) Prothrombin Time INR 1.11 (0.9-1.15) Urinalysis Test 10/22/24 07:47 Urine Color Yellow (Yellow) Urine Clarity Turbid (Clear) H Urine pH 6.0 (5.0-9.0) Urine Specific [place] 1.029 (1.001-1.035) Urine Protein 3+ (Negative) H Urine Ketones Negative (Negative) Urine Blood 2+ /uL (Negative) H Urine Nitrite Negative (Negative) Urine Bilirubin Negative (Negative) Urine Urobilinogen Normal mg/dL (Negative) Urine Leukocyte Esterase Negative /uL (Negative) Urine RBC 40 /hpf (0 - 3) Urine Microscopic WBC 9 /HPF (0-3) H Urine Squamous Epithelial Cells Few /hpf (<5) Urine Bacteria Few /hpf (None Seen) H Urine Mucus Few (None Seen) Urine Yeast (Budding) Occasional /hpf (None Urine Glucose Trace mg/dL (Normal) Microbiology Microbiology Date/Time Source Procedure Growth Status 10/23/24 13:00 Ankle Gram Stain - Final Resulted 10/23/24 13:00 Ankle Wound Culture - Preliminary Resulted 10/22/24 07:47 Voided Urine Urine Culture - Final Escherichia coli - ESBL Proteus mirabilis Complete Assessment/Plan Assessment/Plan ASSESSMENT: Patient is a 64-year-old male seen on the floor for right lateral ankle wound PLAN: - The patients chart was reviewed, clinical findings were discussed with the patient, the etiologies of the conditions were discussed in detail, and a treatment plan was agreed to at this time, with both oral and written instructions provided. - reviewed CT which did show some soft tissue emphysema - we will take him to the OR for a debridement today - patient will need subsequent wound care after discharge - patient has been NPO since midnight - we will perform I&D of the right ankle - the follow up 1 week after discharge All questions were answered and concerns addressed to the patient's satisfaction. The patient was given the phone number to the clinic and was told how to make contact with the clinic should any concerns or questions arise. Patient understands that if any questions or concerns arise prior to the next appointment, we should be contacted immediately. FOLLOW-UP: Continue to follow while inpatient Plan discussed with: Patient My Orders Orders - CHERYL LEWIS DPM Procedure Category Date Status Time Npo After Midnight ORDERS 10/24/24 Transmitted Npo (Nothing By DIET 10/25/24 Transmitted Mouth) Diet Breakfast Obtain Consent For: ORDERS 10/24/24 Transmitted 15:38 Chest Portable XY 10/25/24 Resulted 07:03 Problem List: (1) Urinary incontinence (2) Generalized weakness (3) Suprapubic pain (4) Complicated UTI (urinary tract infection) Date of Service: Oct 25, 2024 Billing Provider: CHERYL LEWIS DPM Common Visit Codes: [id number] INP/OBS CARE(HIGH) CHERYL LEWIS DPM Oct 25, 2024 12:57
[2024-10-25] MEDS ORDERED: ONDANSETRON HCL 4 MG/2 ML VIAL ONE (13:00)
[2024-10-25] MEDS ORDERED: MIDAZOLAM HCL 2MG/2ML 2ml VIAL (1mg/ml) ONE (13:00)
[2024-10-25] MEDS ORDERED: GLYCOPYRROLATE 0.2 MG/ML 1ML VIAL ONE (13:00)
[2024-10-25] MEDS ORDERED: KETAMINE 50mg/ML 1ml syringe ONE (13:00)
[2024-10-25] MEDS ORDERED: PROPOFOL 10 MG/ML 20 ML IV ONE (13:00)
[2024-10-25] MEDS ORDERED: fentaNYL CITRATE 100 MCG/2 ML VL ONE (13:17)
[2024-10-25 13:52] LABS: COVID19 ANTIGEN SOFIA FIA NEGATIVE (NEGATIVE)
[2024-10-25] MEDS ORDERED: HYDROmorphone HCL 2 MG/ML VL/or syr IV PRN (14:00)
[2024-10-25] MEDS: BUPIVACAINE 0.25% INJ 50ML VIAL ONE (14:14)
--- NOTE | 2024-10-25 14:34 | DVHOP2 ---
Operative Report - 2 Report Details Date: 10/25/24 Preop Diagnosis: 1. Right ankle abscess 2. Right ankle cellulitis 3. Right ankle wound Postop Diagnosis: Same as preop Surgeon: Cheryl Lewis MD Anesthesiologist: Anesthesia Anesthesia: Mac Consent: The patient was informed of the risks and benefits of the procedure. These include but are not limited to complications of anesthesia, postoperative infection, incomplete relief of symptoms, recurrence of symptoms, damage to blood vessels, nerves and tendons, deep venous thrombosis, pulmonary embolism and possible need for repeat surgery in the future. Complications: None Estimated Blood Loss: Minimal Fluids: See anesthesia Findings: Consistent with the diagnosis Indications for Surgery: Worsening right ankle wound Name of Procedure Performed 1. Right ankle I&D with bone (51591) Procedure Details Procedure Details: PRE-PROCEDURE INFORMATION: In the pre-op holding area, the extremity to be operated on was clearly marked and the patient verified correct laterality of the marking. The patient was transferred to the OR table and placed in a supine position. A timeout was performed in which identification of the correct patient, procedure, location, and materials was done. The right foot and leg were prepped and draped in normal sterile fashion. DESCRIPTION OF PROCEDURE: Attention was directed to the right ankle where area of fluctuance was noted. An incision was made over this area and was deepened through blunt dissection. The incision was deepened to the level of abscess and bone. Care was taken to the dissection to avoid any neurovascular and tendinous structures. The incision was deepened to the bone, and the abscess appeared to be purulent fluid consistent with pus. The cortices of the bone was then removed with Mateusz an all necrotic tissue. After the abscess was drained, the area was irrigated with 3 L normal saline using cysto tubing. Deep cultures were then obtained from the wound. The area was then inspected and any areas of tracking, especially along the tendons were also drained. The wound was packed with Betadine-soaked gauze and wound we will heal by secondary intent. POSTOPERATIVE INFORMATION: The patient tolerated the above noted procedure and anesthesia well and was transferred to the PACU with vital signs stable, and va scular status intact with capillary refill intact to all digits. Deep cultures were taken. Patient will need 6 weeks of IV antibiotics as the wound went directly down to bone and there was fragmentation. Deep cultures were taken. Patient should be nonweightbearing on the right lower extremity. Condition Good Disposition Still a Patient CHERYL LEWIS DPM Oct 25, 2024 14:34
[2024-10-26] VITALS (7 sets, daily range): BP systolic 145–169; BP diastolic 69–100; PULSE 80–101; RESP 16–20; TEMP 36.6; O2SAT 90–93
--- NOTE | 2024-10-26 09:24 | DVHPN2 ---
Reviewed: Care Plan, H&P, Labs, Medications, Previous Orders, Radiology Changes from previous H/P or p: No Changes Eyes: No Pain, No Vision change, No Conjunctivae inflammation, No Eyelid inflammation, No Other, No Redness ENT: No Ear pain, No Ear discharge, No Nose pain, No Nose discharge, No Nose congestion, No Mouth pain, No Mouth swelling, No Throat pain, No Throat swelling, No Other Cardiovascular: No Chest Pain, No Palpitations, No Orthopnea, No Paroxysmal Noc. Dyspnea, No Edema, No Lt Headedness, No Other Respiratory: No Cough, No Dry, No Shortness of breath, No SOB with excertion, No Wheezing, No Hemoptysis, No Pleuritic Pain, No Sputum, No Other Gastrointestinal: No Nausea, No Vomiting; Abdominal Pain (pelvic pain); No Diarrhea, No Constipation, No Melena, No Hematochezia, No Other Genitourinary: Dysuria, Frequency; No Incontinence, No Hematuria, No Retention, No Other Musculoskeletal: No other, No neck pain, No shoulder pain, No arm pain, No back pain, No hand pain, No leg pain, No foot pain Skin: No Rash, No Lesions, No Jaundice, No Bruising, No Other Objective Vitals Vital Signs Date Time Temp Pulse Resp B/P (MAP) Pulse Ox O2 Delivery O2 Flow Rate FiO2 10/26/24 05:00 98.4 91 18 169/91 (117) 91 98.4 10/25/24 20:00 Room Air* 0 21 Intake/Output Intake and Output 10/26/24 07:00 Intake Total 735 ml Output Total 300 ml Balance 435 ml Intake Oral 600 ml IV Total 135 ml Output Urine Total 300 ml # Voids 1 Medications Current Medications Medications Dose Ordered Sig/Aren Route Start Time Stop Time Status Last Admin Dose Admin Sodium Chloride 1,000 ml @ 75 mls/hr [id number] IV 10/22/24 13:30 10/25/24 21:30 75 MLS/HR Acetaminophen/ Hydrocodone Bitart 1 tab Q4HP PRN PO 10/22/24 13:30 10/24/24 21:43 1 TAB Ondansetron HCl 4 mg Q4HP PRN IV 10/22/24 13:30 Docusate Sodium 100 mg BIDPRN PRN PO 10/22/24 13:30 Acetaminophen 650 mg Q6HP PRN PO 10/22/24 13:30 Levetiracetam 500 mg BID PO 10/22/24 22:00 10/25/24 22:19 500 MG Amlodipine Besylate 10 mg DAILY PO 10/23/24 10:00 10/25/24 09:37 10 MG Ertapenem 1 gm/ Sodium Chloride 50 ml @ 50 mls/hr DAILY@09 IV 10/25/24 09:00 10/25/24 08:52 50 MLS/HR Cefazolin Sodium/ Dextrose 50 ml @ 50 mls/hr Q8HR IV 10/26/24 14:00 UNV Laboratory Results Laboratory Tests 10/23/24 05:59 Urinalysis Test 10/22/24 07:47 Urine Color Yellow (Yellow) Urine Clarity Turbid (Clear) H Urine pH 6.0 (5.0-9.0) Urine Specific [place] 1.029 (1.001-1.035) Urine Protein 3+ (Negative) H Urine Ketones Negative (Negative) Urine Blood 2+ /uL (Negative) H Urine Nitrite Negative (Negative) Urine Bilirubin Negative (Negative) Urine Urobilinogen Normal mg/dL (Negative) Urine Leukocyte Esterase Negative /uL (Negative) Urine RBC 40 /hpf (0 - 3) Urine Microscopic WBC 9 /HPF (0-3) H Urine Squamous Epithelial Cells Few /hpf (<5) Urine Bacteria Few /hpf (None Seen) H Urine Mucus Few (None Seen) Urine Yeast (Budding) Occasional /hpf (None Urine Glucose Trace mg/dL (Normal) Microbiology Microbiology Date/Time Source Procedure Growth Status 10/23/24 13:00 Ankle Gram Stain - Final Resulted 10/23/24 13:00 Ankle Wound Culture - Preliminary Resulted 10/22/24 07:47 Voided Urine Urine Culture - Final Escherichia coli - ESBL Proteus mirabilis Complete Labs and/or images reviewed: Labs reviewed by me, Image(s) reviewed by me Assessment/Plan Assessment/Plan Sepsis secondary to urinary tract infection: Urine cultures growing ESBL E coli, continue Invanz 1 g IV daily for three weeks Seizures: Keppra Hypertension: Amlodipine Acute urinary retention: CT abdomen pelvis without contrast negative, PSA normal, Hernandez Left eye blind History of right ankle fracture surgery at [facility] 09/25/2024, patient did not go back for postop check, possible infection per wound care nurse , MRI ankle could not be done as there is too much metal in the ankle per technology assistant Rm, consult for rn community health Dr. Lara appreciated, status post incision and drainage of the right ankle wound to the bone by Dr. Marshall, wound culture results pending advised six weeks of IV antibiotics Discussed with the patient and is willing to go to alf facility for IV antibiotics Midline in place Plan discussed with: Patient My Orders Orders - CASSIE MCKEON MD Procedure Category Date Status Time Insert Midline ORDERS 10/25/24 Transmitted 10:08 Communication Order ORDERS 10/25/24 Transmitted 10:08 Pt Request For Service PT 10/25/24 Logged 10:09 * Portrait Painter CONS 10/25/24 Transmitted Consult 13:41 Cefazolin 2 PHA 10/26/24 Logged [id number] (Ancef) 14:00 Date of Service: Oct 26, 2024 Billing Provider: CASSIE MCKEON MD Common Visit Codes: [id number] INP/OBS CARE(HIGH) CASSIE MCKEON MD Oct 26, 2024 09:24
--- NOTE | 2024-10-26 09:38 | DVHDS2 ---
Discharge Summary Date of Admission Oct 22, 2024 at 13:21 Date of Discharge: Oct 26, 2024 Admitting Diagnosis Urinalysis symptoms Wounds: Right ankle incision and drainage Labs/Diagnostic Data: Laboratory Results Test 10/25/24 12:59 10/25/24 04:57 10/23/24 05:59 10/22/24 07:47 SARS-CoV-2 Antigen (Rapid) Negative (NEGATIVE) Prothrombin Time 11.6 sec (9.3-11.8) Prothrombin Time INR 1.11 (0.9-1.15) White Blood Count 10.3 10^3/uL (4.4-10.8) Red Blood Count 3.75 10^6/uL (4.5-5.90) Hemoglobin 11.8 g/dL (13.5-17.5) Hematocrit 34.7 % (41.0-53.0) Mean Corpuscular Volume 92.3 fL (80.0-100.0) Mean Corpuscular Hemoglobin 31.4 pg (28.0-32.0) Mean Corpuscular Hemoglobin Concent 34.0 g/dL (32.0-36.0) Red Cell Distribution Width 14.7 % (11.8-14.3) Platelet Count 287 10^3/uL (140-450) Mean Platelet Volume 9.3 fL (6.9-10.8) Neutrophils (%) (Auto) 69.3 % (37.0-80.0) Lymphocytes (%) (Auto) 20.7 % (10.0-50.0) Monocytes (%) (Auto) 6.9 % (0.0-12.0) Eosinophils (%) (Auto) 2.8 % (0.0-7.0) Basophils (%) (Auto) 0.3 % (0.0-2.0) Neutrophils # (Auto) 7.1 10 ^3/uL (1.6-8.6) Lymphocytes # (Auto) 2.1 10 ^3/uL (0.4-5.4) Monocytes # (Auto) 0.7 10 ^3/uL (0-1.3) Eosinophils # (Auto) 0.3 10 ^3/uL (0-0.8) Basophils # (Auto) 0 10 ^3/uL (0-0.2) Nucleated Red Blood Cells 0.0 % Sodium Level 139 mmol/L (136-145) Potassium Level 3.4 mmol/L (3.5-5.1) Chloride Level 101 mmol/L (98-107) Carbon Dioxide Level 28 mmol/L (20-31) Anion Gap 10 (5-15) Blood Urea Nitrogen 37 mg/dL (9-23) Creatinine 1.69 mg/dL (0.700-1.30) Glomerular Filtration Rate Calc 45 mL/min (>90) BUN/Creatinine Ratio 21.9 (10.0-20.0) Serum Glucose 148 mg/dL (74-106) Calcium Level 10.0 mg/dL (8.7-10.4) Total Bilirubin 0.3 mg/dL (0.2-1.0) Aspartate Amino Transferase (AST) 26 U/L (13-40) Alanine Aminotransferase (ALT) 26 U/L (7-40) Alkaline Phosphatase 65 U/L (46-116) Total Protein 7.0 g/dL (5.7-8.2) Albumin 3.9 g/dL (3.2-4.8) Free Prostate Specific Antigen 0.10 ng/mL (N/A) Percent Free Prostate Specific Ag 3.3 % (.) Prostate Specific Antigen Total 3.0 ng/mL (0.0-4.0) Urine Color Yellow (Yellow) Urine Clarity Turbid (Clear) Urine pH 6.0 (5.0-9.0) Urine Specific [place] 1.029 (1.001-1.035) Urine Protein 3+ (Negative) Urine Ketones Negative (Negative) Urine Blood 2+ /uL (Negative) Urine Nitrite Negative (Negative) Urine Bilirubin Negative (Negative) Urine Urobilinogen Normal mg/dL (Negative) Urine Leukocyte Esterase Negative /uL (Negative) Urine RBC 40 /hpf (0 - 3) Urine Microscopic WBC 9 /HPF (0-3) Urine Squamous Epithelial Cells Few /hpf (<5) Urine Bacteria Few /hpf (None Seen) Urine Mucus Few (None Seen) Urine Yeast (Budding) Occasional /hpf (None Urine Glucose Trace mg/dL (Normal) Other Laboratory Tests 10/23/24 05:59 Brief Hx & Hospital Course: 64-year-old male came to the hospital for urinary symptoms found to have UTI treated with Rocephin urine cultures grew ESBL E coli antibiotic changed to Invanz 1 g IV daily for three weeks history of seizures on Keppra hypertension and amlodipine patient also had acute urinary retention CT abdomen pelvis without contrast was negative PSA was normal he had Hernandez inserted. Patient has had right ankle surgery at [facility] 09/25/2024 never followed up. Complained of pain MRI could not be done because of the heavy metal in the area CT right ankle was done. Patient underwent incision and drainage of the right ankle wound up to the bone by flat optical element maker Dr Marshall recommended IV antibiotics for six weeks. Patient will receive Ancef 2 g IV q.8 hours for six weeks Patient is being discharged to [facility] facility for IV antibiotics for which the patient is agreeable Consults/Reason for consult Duplicator Punch Set Up Operator Dr Marshall Operations or Procedures Incision drainage right ankle infection to the bone by flat optical element maker Condition at Discharge: Fair Final Diagnosis/Problems List Sepsis secondary to urinary tract infection: Urine cultures growing ESBL E coli, continue Invanz 1 g IV daily for three weeks Seizures: Keppra Hypertension: Amlodipine Acute urinary retention: CT abdomen pelvis without contrast negative, PSA normal, Hernandez Left eye blind History of right ankle fracture surgery at [facility] 09/25/2024, patient did not go back for postop check, possible infection per wound care nurse , MRI ankle could not be done as there is too much metal in the ankle per implementation technician Rm, consult for flat optical element maker Dr. Lara appreciated, status post incision and drainage of the right ankle wound to the bone by Dr. Marshall, wound culture results pending advised six weeks of IV antibiotics Discharge Disposition: [facility] Facility Discharge Instruct/Medications Diet: Cardiac 2g Na,low cholest Activity: Light activity Follow Up/Referral: Follow up with the alf Medications: Invanz 1 g IV daily for three weeks for ESBL E coli UTI Ancef 2 g IV q.8 hours for six weeks for right ankle infection 35 (Time Taken for discharge summary 35 minutes) Discharge Statement: "Patient was advised to return to the ER or call 911 if any headaches, dizziness, shortness of breath, chest pain, abdominal pain, bleeding, fevers, or worsening of medical condition. Patient was counseled about treatment plan, medications, possible side effects, patientverbalized understanding. All questions were answered to the best of my ability. This discharge took greater then 30 minutes in planning, reviewing documentation, counseling the patient, and discussing with other team members." ASSESSMENT ASSESSMENT Hospital Course Improved Assessment Sepsis secondary to urinary tract infection: Urine cultures growing ESBL E coli, continue Invanz 1 g IV daily for three weeks Seizures: Keppra Hypertension: Amlodipine Acute urinary retention: CT abdomen pelvis without contrast negative, PSA normal, Hernandez Left eye blind History of right ankle fracture surgery at [facility] 09/25/2024, patient did not go back for postop check, possible infection per wound care nurse , MRI ankle could not be done as there is too much metal in the ankle per implementation technician Rm, consult for flat optical element maker Dr. Lara appreciated, status post incision and drainage of the right ankle wound to the bone by Dr. Marshall, wound culture results pending advised six weeks of IV antibiotics Date of Service: Oct 26, 2024 Billing Provider: CASSIE MCKEON MD Common Visit Codes: 36424-MLE/OBS DISCH DAY >30min CASSIE MCKEON MD Oct 26, 2024 09:38
[2024-10-26] MEDS: ceFAZolin 2 GM/D5W50ml 50 ML IV SCH (14:25)
== END 2024-10-26 18:38 | DRG 872 ==
LOC: ER 05:46 → EDBD 05:46 → OVERFLOW 13:21 → EAST 13:24
PROVIDERS: ADMIT Family Medicine; ATTEND Family Medicine
PROC: 05HC33Z Insertion of Infusion Device into Left Basilic Vein, Percutaneous Approach (ICD-10-PCS; 2024-10-25)
PROC: B54NZZA Ultrasonography of Left Upper Extremity Veins, Guidance (ICD-10-PCS; 2024-10-25)
PROC: 0Y9K0ZZ Drainage of Right Ankle Region, Open Approach (ICD-10-PCS; principal; 2024-10-25 14:01)
DX: A41.9 Sepsis, unspecified organism (principal); L02.415 Cutaneous abscess of right lower limb; L03.115 Cellulitis of right lower limb; N30.90 Cystitis, unspecified without hematuria; R56.9 Unspecified convulsions; I10 Essential (primary) hypertension; H54.62 Unqualified visual loss, left eye, normal vision right eye; Z79.899 Other long term (current) drug therapy; S91.001A Unspecified open wound, right ankle, initial encounter; X58.XXXA Exposure to other specified factors, initial encounter; Y93.89 Activity, other specified; Y92.89 Other specified places as the place of occurrence of the external cause; Y99.8 Other external cause status
CPT/HCPCS: 36415; 71045; 73700; 74176; 80048; 80053; 81001; 84154; 85025; 85610; 86850; 86900; 86901; 87070; 87075; 87077; 87086; 87088; 87186; 87205; 87426; 96365; 97163; G0378; J0692; J1335; J2250; J2405; J2704; J3490

== ENCOUNTER 2025-08-08 15:17 | Emergency (ER) | payer OTHER, MEDICAID ==
[~2025-08-08] VITALS: Ht 180.3 cm; Wt 98.0 kg
--- NOTE | 2025-08-08 15:40 | ED.PDOC ---
GI ASSESSMENT HPI Comments HPI: 64 year old male presents to the emergency department with a chief complaint of diarrhea onset 2 months. He has been experiencing diarrhea for the past 2 moths, saw PCP and was prescribed Loperamide. Patient has taking Loperamide, does improve symptoms, diarrhea returns when he is not taking medication, PCP recommended patient to come to ED. When he is not taking medication, he has 2-3 bowel movements, brown loose stool. Denies fever, chills, abdominal pain, dizziness, headache, hematemesis, melena, blood in stool. No other symptoms or modifying factors present at this time. Initial Vitals BP: 163/105 HR: 82 RR: 18 O2 Sat: 96% Temp:98.5 F Past Medical history: HTN, HLD, seizure Past Surgical history: Shoulder surgery, RT foot surgery Medications: oxcarbazepine Social History: Denies smoking, ETOH, and drug use. Allergies: NKDA AGUILERA: diarrhea HPI: Poor Historian. Past Medical History: Past Surgical History: REVIEW OF SYSTEMS: CONSTITUTIONAL: Denies acute: fever, diaphoresis, chills, generalized weakness. HEAD: Denies acute: headache, photophobia Eyes: Denies acute: Double vision, vision loss, eye pain, eye discharge. EARS: Denies acute: tinnitus, hearing loss, ear discharge, ear pain, THROAT: Denies acute: sore throat, swelling, difficulty swallowing , pain with swallowing, change in voice. NECK: Denies acute: neck pain, neck swelling, stiff neck. HEART: Denies acute : chest pain, palpitations, LUNGS: Denies acute: SOB, wheezing, cough, hemoptysis ABDOMEN: Denies acute: abdominal pain, Nausea, Vomiting, , melena , hematemesis, hematochezia SKIN: Denies acute: rash, redness, lesions, itchiness. EXTREMITIES: Denies acute: calf pain, numbness, tingling, weakness, denies pain in extremity. Denies acute: Low back pain. Neuro: Denies acute: focal neurological deficit, motor or sensory focal neurological deficit, tremors, seizure like activity, confusion, dizziness, change in mental status, loss of bowel or bladder function, cauda equina like symptoms. : Denies acute: dysuria, hematuria, flank pain, increase in urinary frequency. PSYCH: Denies acute: hallucination, suicidal ideation, homicidal ideation. PHYSICAL EXAM: General: -----no---acute distress, awake and alert. Head: normocephalic, atraumatic. No raccoon's eyes, no plaacios sign. Neck: supple, trachea is midline, no swelling. Throat: Normal phonation. Eyes:, no erythema, no purulent discharge, no proptosis, no icterus. Heart: regular rate, regular rhythm, no significant murmur appreciated. Lungs: no apparent respiratory distress, Able to speak in full sentences. No wheezing, no rhonchi, no crackles. No stridors Clear to auscultation bilaterally. Abdomen: non tender to palpation, non distended, soft, no guarding, no rebound, + bowel sounds. Neuro: Awake, Alert, oriented to name, self, situation, follows commands GCS=15. Speech is normal. Skin: no petechia, no purpura, no cyanosis, non-pale, not jaundice. Lower extremities: --no - Pitting edema no deformity, no focal swelling, no calf TTP. Makes eye contact. moves all four extremities. Face: no apparent facial droop. Ambulating in the ED independently. ED COURSE: DISCLAIMER: This medical document was created using an electronic medical record system with voice recognition software and computerized dictation system. Although this document has been carefully reviewed, there might still be some phonetic and typographical errors. Occasional wrong-word or "sound-alike" substitutions may have occurred due to the inherent limitations of voice recognition software. These areas are purely typographical due to imperfections of the software programs and do not reflect any compromise in the patient's medical care. Please read the chart carefully and recognize, using context, where these substitutions have occurred. Chief Complaint: Diarrhea Time Seen by MD: 15:30 Reviewed Notes: Medications, Allergies Allergies: Coded Allergies: NO KNOWN ALLERGIES (Unverified , 10/22/24) Home Meds Unable to Obtain Active Prescriptions or Reported Meds Information Source: Patient Mode of Arrival: Ambulatory Timing: Months Duration: Since onset Prehospital treatment: None Past Medical History PAST MEDICAL HISTORY: High Lipids, HTN, Seizures Surgical History: Denies all surgeries Family History Family History: Unknown Social History Smoker: Non-Smoker Alcohol: Denies ETOH Use Drugs: Denies Drug Use Lives In: Home Was a procedure done? Was a procedure done?: No X-Ray, Labs, Meds, VS Vital Signs Date Time Temp Pulse Resp B/P (MAP) Pulse Ox O2 Delivery O2 Flow Rate FiO2 08/08/25 16:56 98.3 84 17 131/86 (101) 95 98.3 08/08/25 15:18 98.5 82 18 163/105 96 98.5 Lab Test 08/08/25 16:22 Range/Units White Blood Count 6.9 4.4-10.8 10^3/uL Red Blood Count 4.74 4.5-5.90 10^6/uL Hemoglobin 15.1 13.5-17.5 g/dL Hematocrit 44.5 41.0-53.0 % Mean Corpuscular Volume 93.8 80.0-100.0 fL Mean Corpuscular Hemoglobin 31.9 28.0-32.0 pg Mean Corpuscular Hemoglobin Concent 34.0 32.0-36.0 g/dL Red Cell Distribution Width 14.2 11.8-14.3 % Platelet Count 190 140-450 10^3/uL Mean Platelet Volume 9.3 6.9-10.8 fL Neutrophils (%) (Auto) 54.2 37.0-80.0 % Lymphocytes (%) (Auto) 36.6 10.0-50.0 % Monocytes (%) (Auto) 6.2 0.0-12.0 % Eosinophils (%) (Auto) 2.5 0.0-7.0 % Basophils (%) (Auto) 0.5 0.0-2.0 % Neutrophils # (Auto) 3.7 1.6-8.6 10 ^3/uL Lymphocytes # (Auto) 2.5 0.4-5.4 10 ^3/uL Monocytes # (Auto) 0.4 0-1.3 10 ^3/uL Eosinophils # (Auto) 0.2 0-0.8 10 ^3/uL Basophils # (Auto) 0 0-0.2 10 ^3/uL Nucleated Red Blood Cells 0.1 % Sodium Level 143 136-145 mmol/L Potassium Level 3.9 3.5-5.1 mmol/L Chloride Level 106 98-107 mmol/L Carbon Dioxide Level 28 20-31 mmol/L Anion Gap 9 5-15 Blood Urea Nitrogen 24 H 9-23 mg/dL Creatinine 1.74 H 0.700-1.30 mg/dL Glomerular Filtration Rate Calc 44 >90 mL/min BUN/Creatinine Ratio 13.8 10.0-20.0 Serum Glucose 118 H 74-106 mg/dL Lactic Acid Level 1.3 0.4-2.0 mmol/L Calcium Level 10.0 8.7-10.4 mg/dL Total Bilirubin 0.2 0.2-1.0 mg/dL Aspartate Amino Transferase (AST) 22 13-40 U/L Alanine Aminotransferase (ALT) 22 7-40 U/L Alkaline Phosphatase 110 46-116 U/L Total Protein 8.0 5.7-8.2 g/dL Albumin 4.7 3.2-4.8 g/dL [place] [address] Ph: [phone] DIAGNOSTIC IMAGING Diagnostic Imaging Report : [id number] Signed PATIENT: LAURIE AGUILERA ACCT: [id number] UNIT: [id number] : 1960 LOC: ER ROOM / BED: / AGE / SEX: 64 / M ADM STATUS: REG ER SERVICE 1535 ORDERING PHYSICIAN: KIA CALZADA DO PROCEDURE(s): ABPL - CT AB PEL WO CON-NO ORAL OR IV REASON: diarrhea ORDER NUMBER(s): [id number], ACCESSION NUMBER(s): [id number] EXAM: CT CT AB PEL WO CON-NO ORAL OR IV History: diarrhea Comparison Study: CT CT AB PEL WO CON-NO ORAL OR IV on DOS: 10/22/24 TECHNIQUE: Multidetector CT of the abdomen AND PELVIS without IV contrast. Axial, coronal and sagittal multiplanar reformats were obtained from the axial data set by the technologist. Radiation Dose Information: CT Dose: CTDI volume is 17.84 mGy. Dose-length product is 938.16 mGy*cm FINDINGS: Bibasilar linear atelectasis/scarring. Partially visualized heart is unrem arkable. Liver, spleen, gallbladder, pancreas and adrenal glands unremarkable. 2.5 cm right renal cyst. Otherwise, kidneys, ureters and urinary bladder are unremarkable. Prostate is unremarkable. Small hiatal hernia. Ahdz-ki-hsfkkhko distention of the stomach filled with Ingested material. The stomach is otherwise unremarkable. Small bowel loops are unremarkable. Appendix is unremarkable. Descending colon and Sigmoid diverticulosis without diverticulitis. No evidence of Intraperitoneal free air free fluid. No evidence of aortic aneurysm. Mild atherosclerotic calcification of the aorta and bilateral iliacs. No significant lymphadenopathy. Small fat containing bilateral inguinal hernias. Small fat containing supraumbilical hernia with fat stranding within the hernia. Tiny fat containing umbilical hernia. 1.3 cm right inguinal prominent lymph node with fatty hilum. Moderate to severe degenerative changes of the lumbar spine. IMPRESSION: Small fat containing supraumbilical hernia with fat stranding within the hernia. Correlate for strangulation of the herniated fat. Small hiatal hernia. Descending colon and Sigmoid diverticulosis without diverticulitis. 2.5 cm right renal cyst. ATED BY: DESI HERR DO DICTATED DATE/TIME: 08/08/25 1617 SIGNED BY: DESI HERR DO SIGNED DATE/TIME: 08/08/25 1617 CC: Time of 1ST Reevaluation: 16:00 Reevaluation 1ST: Unchanged Time of 2ND Reevaluation: 19:00 (THE CASE WAS DISCUSSED WITH THE GENERAL SURGERY ON-CALL TEAM (HPI, PHYSICAL EXAM, LABS AND DIAGNOSTIC TESTS THAT WERE AVAILABLE AT THE TIME OF DISPOSITION, ED COURSE, TREATMENT PLAN) ON THE PHONE. RECOMMEND OUTPATIENT FOLLOW UP. NO NEED FOR SURGICAL INTERVENTION AT THIS TIME. DR. DAS. ) Patient Education/Counseling: Diagnosis, Treatment Family Education/Counseling: No Family Present Departure 1 Departure Time of Disposition: 17:44 Impression: Primary Impression: Diarrhea Additional Impression: Supraumbilical hernia Disposition: 01 HOME / SELF CARE / HOMELESS Condition: Stable Additional Instructions: Additional instructions: Please read all instructions provided in this packet carefully. You MUST follow-up with your primary care/family doctor in 1 to 2 days. If you are unable to see your primary care/family doctor, please return to our emergency room for re-assessment and re-evaluation in 1 to 2 days. Return to the emergency room here in our facility or to the nearest ER [facility] if your symptoms change or worsen. CONSULTATIONS: you MUST Follow-up for consultation as soon as possible with: general surgery in 1-2 days. Please call for appointment. You MUST call the consultants office yourself to make an appointment. You may need to arrange that through your insurance and/or your primary/family doctor. If you are unable to see the commercial solar sales consultant in 1 to 2 days, you must return to our emergency room (or any other ER of your choice) for re-assessment and re- evaluation. Adequate fluid hydration. Although you have been discharged from the Emergency Department, this does not mean that you have a "clean bill of health". No definitive diagnosis for your symptoms has been made today. It is possible that you are in the process of developing a serious illness. This is why you must return to the ED without fail if any new or worsening symptoms develop. YOU HAVE A HERNIA THAT COULD POSSIBLY BE STRANGULATED. YOU WILL NEED TO FOLLOW UP WITH GENERAL SURGERY Below is a copy of your radiological report for follow up: [place] [address] Ph: [phone] DIAGNOSTIC IMAGING Diagnostic Imaging Report : [id number] Signed PATIENT: LAURIE AGUILERA ACCT: [id number] UNIT: [id number] : 1960 LOC: ER ROOM / BED: / AGE / SEX: 64 / M ADM STATUS: REG ER SERVICE 1535 ORDERING PHYSICIAN: KIA CALZADA DO PROCEDURE(s): ABPL - CT AB PEL WO CON-NO ORAL OR IV REASON: diarrhea ORDER NUMBER(s): [id number], ACCESSION NUMBER(s): [id number] EXAM: CT CT AB PEL WO CON-NO ORAL OR IV History: diarrhea Comparison Study: CT CT AB PEL WO CON-NO ORAL OR IV on DOS: 10/22/24 TECHNIQUE: Multidetector CT of the abdomen AND PELVIS without IV contrast. Axial, coronal and sagittal multiplanar reformats were obtained from the axial data set by the technologist. Radiation Dose Information: CT Dose: CTDI volume is 17.84 mGy. Dose-length product is 938.16 mGy*cm FINDINGS: Bibasilar linear atelectasis/scarring. Partially visualized heart is unremarkable. Liver, spleen, gallbladder, pancreas and adrenal glands unremarkable. 2.5 cm right renal cyst. Otherwise, kidneys, ureters and urinary bladder are unremarkable. Prostate is unremarkable. Small hiatal hernia. Rseb-gc-hjittqpr distention of the stomach filled with Ingested material. The stomach is otherwise unremarkable. Small bowel loops are unremarkable. Appendix is unremarkable. Descending colon and Sigmoid diverticulosis without diverticulitis. No evidence of Intraperitoneal free air free fluid. No evidence of aortic aneurysm. Mild atherosclerotic calcification of the aorta and bilateral iliacs. No significant lymphadenopathy. Small fat containing bilateral inguinal hernias. Small fat containing supraumbilical hernia with fat stranding within the hernia. Tiny fat containing umbilical hernia. 1.3 cm right inguinal prominent lymph node with fatty hilum. Moderate to severe degenerative changes of the lumbar spine. IMPRESSION: Small fat containing supraumbilical hernia with fat stranding within the hernia. Correlate for strangulation of the herniated fat. Small hiatal hernia. Descending colon and Sigmoid diverticulosis without diverticulitis. 2.5 cm right renal cyst. ATED BY: DESI HERR DO DICTATED DATE/TIME: 08/08/251616 SIGNED BY: DESI HERR DO SIGNED DATE/TIME: 08/08/251616 CC: e-Prescriptions Unable to Obtain Active Prescriptions or Reported Meds Discharged With: Self Critical Care Note Critical Care Time?: No I personally scribed for KIA CALZADA DO ([email or web address]) on 08/08/25 at 15:40. Electronically submitted by Lesley Barahona ([email or web address]). I personally scribed for KIA CALZADA DO ([email or web address]) on 08/08/25 at 17:09. Electronically submitted by Lesley Barahona ([email or web address]). I personally scribed for KIA CALZADA DO ([email or web address]) on 08/08/25 at 18:10. Electronically submitted by Lesley Barahona ([email or web address]). KIA CALZADA DO Aug 08, 2025 15:40
--- NOTE | 2025-08-08 16:19 | DVH ---
EXAM: CT CT AB PEL WO CON-NO ORAL OR IV History: diarrhea Comparison Study: CT CT AB PEL WO CON-NO ORAL OR IV on DOS: 10/22/24 TECHNIQUE: Multidetector CT of the abdomen AND PELVIS without IV contrast. Axial, coronal and sagittal multiplanar reformats were obtained from the axial data set by the technologist. Radiation Dose Information: CT Dose: CTDI volume is 17.84 mGy. Dose-length product is 938.16 mGy*cm FINDINGS: Bibasilar linear atelectasis/scarring. Partially visualized heart is unremarkable. Liver, spleen, gallbladder, pancreas and adrenal glands unremarkable. 2.5 cm right renal cyst. Otherwise, kidneys, ureters and urinary bladder are unremarkable. Prostate is unremarkable. Small hiatal hernia. Pgbn-[id number]-dvpsjxee distention of the stomach filled with Ingested material. The stomach is otherwise unremarkable. Small bowel loops are unremarkable. Appendix is unremarkable. Descending colon and Sigmoid diverticulosis without diverticulitis. No evidence of Intraperitoneal free air free fluid. No evidence of aortic aneurysm. Mild atherosclerotic calcification of the aorta and bilateral iliacs. No significant lymphadenopathy. Small fat containing bilateral inguinal hernias. Small fat containing supraumbilical hernia with fat stranding within the hernia. Tiny fat containing umbilical hernia. 1.3 cm right inguinal prominent lymph node with fatty hilum. Moderate to severe degenerative changes of the lumbar spine. IMPRESSION: Small fat containing supraumbilical hernia with fat stranding within the hernia. Correlate for strangulation of the herniated fat. Small hiatal hernia. Descending colon and Sigmoid diverticulosis without diverticulitis. 2.5 cm right renal cyst.
[2025-08-08 16:46] LABS: Hematocrit 44.5 % (41.0-53.0); Hemoglobin 15.1 g/dL (13.5-17.5); Mean Corpuscular Hemoglobin 31.9 pg (28.0-32.0); Mean Corpuscular Volume 93.8 fL (80.0-100.0); Nucleated Red Blood Cells % 0.1 %
[2025-08-08 17:03] LABS: Alanine Aminotransferase 22 U/L (7-40); Albumin 4.7 g/dL (3.2-4.8); Alkaline Phosphatase 110 U/L (46-116); Anion Gap 9 (5-15); BUN/Creatinine Ratio 13.8 (10.0-20.0); Calcium 10.0 mg/dL (8.7-10.4); Carbon Dioxide 28 mmol/L (20-31); Chloride 106 mmol/L (98-107); Potassium 3.9 mmol/L (3.5-5.1); Sodium 143 mmol/L (136-145); Total Protein 8.0 g/dL (5.7-8.2)
[2025-08-08 17:06] LABS: Bilirubin, Total 0.2 mg/dL (0.2-1.0); Blood Urea Nitrogen 24 mg/dL (9-23); Glucose 118 mg/dL (74-106)
[2025-08-08 19:21] VITALS: BP 153/98; PULSE 82; RESP 18; TEMP 98.2; O2SAT 94
== END 2025-08-08 19:23 | disposition home or self-care (01) ==
LOC: ER 15:17
DX: K42.9 Umbilical hernia without obstruction or gangrene (principal); R19.7 Diarrhea, unspecified; I10 Essential (primary) hypertension; E78.5 Hyperlipidemia, unspecified
CPT/HCPCS: 36415; 74176; 80053; 83605; 85025